=== PATIENT | female | born 1990 | race Caucasian/White ===

== ENCOUNTER 2016-04-15 13:30 | Emergency (ER) | payer OTHER ==
[2016-04-15] MEDS ORDERED: ONDANSETRON ODT 4 MG TABLET TL STA (14:45)
[2016-04-15] MEDS ORDERED: ONDANSETRON ODT 4 MG TABLET ONE (14:45)
[2016-04-15] MEDS ORDERED: BUTALB/ACETAM/CAFF 50/325/40MG TABLET PO ONE (15:00)
== END 2016-04-15 16:03 | disposition home or self-care (01) ==
DX: R51 Headache (principal)
CPT/HCPCS: 36415; 80053; 81003; 81025; 83690; 85025; 87275; 87276; 99283; A9270; Q0162

== ENCOUNTER 2016-07-28 04:03 | Emergency (ER) | payer OTHER ==
[2016-07-28] MEDS ORDERED: MORPHINE 2 MG/ML SYRINGE IVP STA ×2 (04:50→06:49)
[2016-07-28] MEDS ORDERED: MORPHINE 2 MG/ML SYRINGE ONE ×2 (04:50→06:48)
[2016-07-28] MEDS ORDERED: NITROFURANTOIN MACRO 100 MG CAPSULE PO STA (06:53)
[2016-07-28] MEDS ORDERED: NITROFURANTOIN MACRO 100 MG CAPSULE PO ONE (06:55)
== END 2016-07-28 07:09 | disposition home or self-care (01) ==
DX: O99.89 Other specified diseases and conditions complicating pregnancy, childbirth and the puerperium (principal); R10.2 Pelvic and perineal pain; Z3A.10 10 weeks gestation of pregnancy
CPT/HCPCS: 36415; 76705; 76801; 80053; 81001; 83690; 84702; 85025; 86900; 86901; 96374; 99283; 99284; A9270

== ENCOUNTER 2016-08-30 17:20 | Outpatient (CLI) | payer OTHER | END 2016-08-30 17:21 | disposition EMS.NT | LOC: EMS 17:20 | PROVIDERS: ATTEND Surgery | DX: R55 Syncope and collapse (principal) ==

== ENCOUNTER 2016-12-03 11:33 | Emergency (ER) | payer OTHER ==
[2016-12-03] MEDS ORDERED: ACETAMINOPHEN 1,000 MG/100 ML 100 ML IV STA (11:58)
[2016-12-03] MEDS ORDERED: SODIUM CHLORIDE 0.9% 1,000 ML IV ONE (11:58)
[2016-12-03] MEDS ORDERED: ACETAMINOPHEN 1,000 MG/100 ML 100 ML IV ONE (12:11)
[2016-12-03 12:23] LABS: BASOPHILS % (AUTO) 0.3 %; EOSINOPHILS # (AUTO) 0.1 10^3/uL (0.0-0.7); EOSINOPHILS % (AUTO) 0.4 %; HCT - HEMATOCRIT 33.2 % (37.0-47.0); HGB - HEMOGLOBIN 11.4 g/dL (12.0-16.0); LYMPHOCYTES # (AUTO) 1.1 10^3/uL (1.5-3.5); LYMPHOCYTES % (AUTO) 8.9 %; MEAN CORPUSCULAR HEMOGLOBIN 30.3 pg (27.0-31.0); MEAN CORPUSCULAR HGB CONC 34.2 g/dL (32.0-36.0); MEAN CORPUSCULAR VOLUME 88.5 fL (81.0-99.0); MEAN PLATELET VOLUME 9.8 fL (7.9-10.8); MONOCYTES % (AUTO) 7.5 %; NEUTROPHILS # (AUTO) 10.6 10^3/uL (1.5-6.6); NEUTROPHILS % (AUTO) 82.9 %; RED BLOOD COUNT 3.75 10^6/uL (4.20-5.40); RED CELL DISTRIBUTION WIDTH 12.9 % (12.0-15.0); UNCORRECTED WHITE BLOOD COUNT 12.8 x10^3/uL; WHITE BLOOD COUNT 12.8 x10^3/uL (4.8-10.8)
[2016-12-03 12:31] LABS: ALBUMIN/GLOBULIN RATIO 0.9 (1.0-2.2); BILIRUBIN,TOTAL 0.6 mg/dL (0.2-1.0); CALCIUM 8.7 mg/dL (8.5-10.3); CREATININE 0.6 mg/dL (0.4-1.0); POTASSIUM 3.3 mmol/L (3.5-5.0); TOTAL PROTEIN 6.7 g/dL (6.7-8.2)
--- NOTE | 2016-12-03 13:46 | Ultrasound Report ---
LIMITED OB ULTRASOUND: 12/03/2016 CLINICAL INDICATION: Fall, pain, contractions. TECHNIQUE: Real-time scanning was performed with sales representative trainee static images obtained. FINDINGS: There is a single viable intrauterine gestation, in cephalic presentation. heart rate is 166 BPM. The placenta is posterior to fundal, without evidence of previa or abruption. MADHAVI is normal. No free fluid is seen. IMPRESSION: SINGLE VIABLE INTRAUTERINE GESTATION. NO EVIDENCE OF PLACENTA PREVIA OR ABRUPTION. JOB #: [id number] EXT JOB #: [id number] [facility]
--- NOTE | 2016-12-03 14:05 | CT Preliminary Report ---
Exam: CT Head W/O IMPRESSION: Normal head CT. [facility] SITE ID: [id number]
--- NOTE | 2016-12-03 14:08 | CT Report ---
EXAM: CT HEAD EXAM DATE: 12/03/2016 01:30 PM. CLINICAL HISTORY: 28wk GA syncope HI amnesia HOOK. COMPARISON: None. TECHNIQUE: Multiaxial CT images were obtained from the foramen magnum to the vertex. IV contrast: Non e. Reformats: Coronal. In accordance with CT protocol optimization, one or more of the following dose reduction techniques w ere utilized for this exam: automated exposure control, adjustment of mA and/or KV based on patient s ize, or use of iterative reconstructive technique. FINDINGS: Parenchyma: No intraparenchymal hemorrhage. No evidence of mass, midline shift, or CT findings of inf arction. Bautista-white differentiation is distinct. Extraaxial Spaces: Normal for age. No subdural or epidural collections. Ventricles: Normal in size and position. Sinuses: Imaged paranasal sinuses, orbits, and mastoids show no significant abnormality. Bones: Unremarkable. Other: None. IMPRESSION: Normal head CT. [facility] Referring Provider Line: [phone] SITE ID: [id number]
--- NOTE | 2016-12-03 14:08 | CT Preliminary Report ---
Exam: CT Cervical Spine W/O IMPRESSION: Normal cervical spine CT. [facility] SITE ID: [id number]
--- NOTE | 2016-12-03 14:10 | CT Report ---
EXAM: CT CERVICAL SPINE WITHOUT CONTRAST DATE: 12/03/2016 02:01 PM HISTORY: Syncope fell HI neck pain neuro intact. COMPARISONS: None. TECHNIQUE: Thin-section axial images were acquired of the cervical spine without contrast. Post-proce ssing: Coronal and sagittal reformats. Other: None. In accordance with CT protocol optimization, one or more of the following dose reduction techniques w ere utilized for this exam: automated exposure control, adjustment of mA and/or KV based on patient s ize, or use of iterative reconstructive technique. FINDINGS: Alignment: Normal. No scoliosis or spondylolisthesis. Bones: No fracture or bone lesion. Interspace Levels/Facets: Disk spaces preserved. No degenerative changes. Musculature: Grossly unremarkable. Other: The paravertebral and prevertebral soft tissues are normal. The lung apices are clear. IMPRESSION: Normal cervical spine CT. [facility] Referring Provider Line: [phone] SITE ID: [id number]
[2016-12-03] MEDS ORDERED: LIDOCAINE PATCH 5% TOP STA (14:40)
[2016-12-03] MEDS ORDERED: oxyCODONE 5 MG TABLET PO STA (14:40)
--- NOTE | 2016-12-03 14:40 | ED Physician Documentation ---
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 and then went to the bathroom and awoke approx 40 min later on the floor after syncopal episode does not know how she landed but her head and neck and abd are TTP no incont or tongue biting to suggest seizure she states she had a migraine type HOOK two days ago but felt fine this AM at breakfast no memory of events after breakfast but at that time she was not having HOOK CP palp AP cramps etc only new med is flagyl for BV after awakening on the floor she had a severe HOOK, tender to palpate posterior, neck pain, and abd pain with cramps that feel like ctx, no bleeding or leaking had another episode of syncope earlier this preg - no cause identified Review of Systems Constitutional: denies: Fever, Chills Ears: denies: Drainage/discharge Nose: denies: Epistaxis Cardiac: denies: Chest pain / pressure Respiratory: denies: Dyspnea GI: reports: Abdominal Pain, Nausea. denies: Vomiting : reports: Now EGA. denies: Vaginal bleeding Musculoskeletal: reports: Neck pain Neurologic: reports: Headache, Head injury (presumked as her head is TTP). 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 cysts Other Past Medical History: optic neuritis - Past Surgical History Past Surgical History: Yes HEENT: Tonsil/Adenoidectomy - Present Medications Home Medications: Ambulatory Orders Medication Instructions Recorded Confirmed Pnv No.122/Iron/Folic Acid 1 each PO DAILY 07/28/16 12/03/16 [ Multi Tablet] Metronidazole 500 mg PO BID 12/03/16 12/03/16 - Allergies Allergies/Adverse Reactions: Allergies Allergy/AdvReac Type Severity Reaction Status Date / Time ampicillin Allergy Unknown Unknown Verified 12/03/16 11:59 lactose Allergy Unknown Verified 12/03/16 11:59 Penicillins Allergy Unknown Verified 12/03/16 11:59 - Social History Does the pt smoke?: No Smoking Status: Never smoker Does the pt drink ETOH?: Yes Does the pt have substance abuse?: No - Immunizations Immunizations are current?: Yes - POLST Patient has POLST: No PD ED PE NORMAL - Vitals Vital signs reviewed: Yes - General General: Alert and oriented X 3 - HEENT HEENT: PERRL, EOMI, Ears normal (no pederson sign, no hemotympanum). No: Atraumatic (TTP occiput) - Neck Neck: No: No bony TTP (+ bony TTP) - Cardiac Cardiac: RRR - Respiratory Respiratory: No respiratory distress - Abdomen Abdomen: Soft, Other (gravid, TTP over uterus but no palp ctx) - Derm Derm: Normal color - Extremities Extremities: No deformity - Neuro Neuro: Alert and oriented X 3, military technology manager 2-12 intact, No motor deficit, No sensory deficit, Normal speech - Psych Psych: Normal mood Results - Vitals Vitals: Vital Signs - 24 hr 12/03/16 12/03/16 12/03/16 11:35 14:22 15:23 Temperature 36.4 C L Heart Rate 84 76 74 Respiratory 18 18 20 Rate Blood Pressure 119/73 116/66 110/67 O2 Saturation 99 100 99 12/03/16 16:16 Temperature Heart Rate 78 Respiratory 18 Rate Blood Pressure 114/69 O2 Saturation Oxygen O2 Source Room air - EKG (time done) 1141 Rate: Rate (enter#) Rhythm: NSR [place]: Normal Intervals: Normal ID QRS: Normal Ischemia: Normal ST segments - Tele (time rhythm occurred) 1550 Telemetry / rhythm strip: NSR - Labs Labs: Laboratory Tests 12/03/16 12/03/16 12/03/16 11:45 11:45 11:54 WBC 12.8 H RBC 3.75 L Hgb 11.4 L Hct 33.2 L MCV 88.5 MCH 30.3 MCHC 34.2 RDW 12.9 Plt Count 226 MPV 9.8 Neut # 10.6 H Lymph # 1.1 L [place] # 1.0 Eos # 0.1 Baso # 0.0 Absolute Nucleated RBC 0.00 Nucleated RBCs 0.0 Sodium 136 Potassium 3.3 L Chloride 104 Carbon Dioxide 25 Anion Gap 7.0 BUN 9 Creatinine 0.6 Estimated GFR (MDRD) 121 Glucose 83 POC Whole Bld Glucose 74 Calcium 8.7 Total Bilirubin 0.6 AST 15 ALT 11 Alkaline Phosphatase 73 Total Protein 6.7 Albumin 3.1 L Globulin 3.6 Albumin/Globulin Ratio 0.9 L Lipase 18 L Urine Color Urine Clarity Urine pH Ur Specific [place] Urine Protein Urine Glucose (UA) Urine Ketones Urine Occult Blood Urine Nitrite Urine Bilirubin Urine Urobilinogen Ur Leukocyte Esterase Ur Microscopic Review Urine Culture Comments Blood Type 12/03/16 12/03/16 15:19 15:30 WBC RBC Hgb Hct MCV MCH MCHC RDW Plt Count MPV Neut # Lymph # [place] # Eos # Baso # Absolute Nucleated RBC Nucleated RBCs Sodium Potassium Chloride Carbon Dioxide Anion Gap BUN Creatinine Estimated GFR (MDRD) Glucose POC Whole Bld Glucose Calcium Total Bilirubin AST ALT Alkaline Phosphatase Total Protein Albumin Globulin Albumin/Globulin Ratio Lipase Urine Color YELLOW Urine Clarity CLEAR Urine pH 7.0 Ur Specific [place] <=1.005 Urine Protein NEGATIVE Urine Glucose (UA) NEGATIVE Urine Ketones NEGATIVE Urine Occult Blood NEGATIVE Urine Nitrite NEGATIVE Urine Bilirubin NEGATIVE Urine Urobilinogen 0.2 (NORMAL) Ur Leukocyte Esterase NEGATIVE Ur Microscopic Review NOT INDICATED Urine Culture Comments NOT INDICATED Blood Type O POSITIVE - Rads (name of study) OB sono Radiology: See rad report (IUP FHR 166 posterior placenta s prvia or abruption) CTH Radiology: See rad report (no acute) CT CS Radiology: See rad report (no acute) PD MEDICAL DECISION MAKING - ED course ED course: syncope unclear etiology pt states she another episode of syncope with no dx this NSR on EKG and tele nl labs no preceding sx that pt can recall she had a migraine last two days but not today - had no HOOK before this collapse severe HOOK after fall but with TTP posterior scalp and neck so more c/w injury, given prolonged LOC, amnesia, and severe HOOK / neck pain felt imaging was prudent d/w radiology Dr Lawton who advises CT more sensitive for injury than MRI and rec CT with shielding of fetus, d/w pt as well CT neg : no fx, no ICH, no SAH on CT, would not angio given discussed LP with pt as well and she declines and I think low likelihood of being useful O+ no rhogam needed d/w Dr Yanez and he will take pt to L&D for further monitoring and I would recommend ongoing tele as well since pt was in radiology off monitor much of her ER stay d/w Dr Yanez Departure - Departure Disposition: 01 Home, Self Care Clinical Impression: Syncope Qualifiers: Syncope type: unspecified Qualified Code(s): R55 - Syncope and collapse Head injury Qualifiers: Encounter type: initial encounter Qualified Code(s): S09.90XA - Unspecified injury of head, initial encounter Qualifiers: Weeks of gestation: 28 weeks Qualified Code(s): Z3A.28 - 28 weeks gestation of Condition: Fair Discharge Date/Time: 12/03/16 16:20
[2016-12-03] MEDS ORDERED: LIDOCAINE PATCH 5% TOP ONE ×2 (15:04→17:45)
[2016-12-03] MEDS ORDERED: oxyCODONE 5 MG TABLET ONE (15:05)
[2016-12-03 15:52] LABS: BILIRUBIN,URINE NEGATIVE (NEGATIVE)
[2016-12-03 15:56] LABS: UA CHARGE (STRIP ONLY) YES; UR CULTURE IF IND NOT INDICATED
[2016-12-03 16:17] VITALS: BP 114/69
[2016-12-03] MEDS ORDERED: ACETAMINOPHEN 325 MG TABLET PO ONE (17:45)
== END 2016-12-03 16:20 | disposition home or self-care (01) ==
LOC: ED 11:33
DX: O9A.213 Injury, poisoning and certain other consequences of external causes complicating pregnancy, third trimester (principal); S09.90XA Unspecified injury of head, initial encounter; O26.893 Other specified pregnancy related conditions, third trimester; R55 Syncope and collapse; Z3A.28 28 weeks gestation of pregnancy; X58.XXXA Exposure to other specified factors, initial encounter; Y92.012 Bathroom of single-family (private) house as the place of occurrence of the external cause
CPT/HCPCS: 36415; 70450; 72125; 76815; 80053; 81003; 82731; 83690; 85025; 86900; 86901; 93005; 96372; 96374; 99213; 99284; A9270; J0131; 81001; 87086

== ENCOUNTER 2016-12-03 16:18 | Outpatient (CLI) | payer OTHER ==
[2016-12-03 16:35] VITALS: BP 111/62
[2016-12-03] MEDS ORDERED: TERBUTALINE 1 MG/ML VIAL SUBQ ONE (18:39)
--- NOTE | 2016-12-03 19:59 | HISTORY & PHYSICAL EXAMINATION ---
DATE OF ADMISSION: 12/03/2016 DATE OF ADMISSION/SURGERY: 12/03/2016. IDENTIFICATION: A 26-year-old 1, para 0 female whose last menstrual period was May 18, 2016. She underwent insemination on May 31, 2016. She was given an EDC of February 20, 2017, utilizing a 7-week ultrasound. CHIEF COMPLAINT: Syncopal episode. HISTORY OF PRESENT ILLNESS: The patient states that this morning at roughly 10: 30 while preparing for work, she passed out. She states that she fell against the door frame and then slid down. She did not notice any hitting the abdomen. She was seen in the ED, at which time she had an EKG, a CT of the head, as well as ultrasound. There was evidence of the placenta being posterior without evidence of any abruption. She was sent here for labor and delivery for monitoring for the . She was noted to have contractions every 1-9 minutes. She notes pressure but denies any pain with these. She states that she had an episode of passing out at roughly 15 weeks secondary to dehydration. She also had a hydronephrosis at 22 weeks' gestation. She is noted to be O positive. She has been seen at [facility] by Dr. Leal. PAST MEDICAL HISTORY: Positive for optic neuritis in the right eye. SURGICAL HISTORY: Positive for tonsillectomy and adenoidectomy, as well as wisdom teeth. ALLERGIES: SHE RELATES 1. PENICILLIN, WELL 2. AMOXICILLIN ALLERGY, WITH WHICH SHE DEVELOPS NAUSEA WELL DIARRHEA. SHE DENIES ANY SWELLING OR SHORTNESS OF BREATH ASSOCIATED WITH THIS. CURRENT MEDICATIONS 1. vitamins, as well as 2. Metronidazole 250 mg b.i.d. HABITS: She denies use of alcohol, tobacco, street or addictive drugs. 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 FAMILY HISTORY: Positive for a grandmother who had acute lymphocytic leukemia. REVIEW OF SYSTEMS: Positive for some difficulty with her right eye. PHYSICAL EXAMINATION GENERAL: A well-developed, well-nourished, white female in no acute distress. VITAL SIGNS: Blood pressure 111/62, respirations 18, and 98%. Temperature is 96.8. HEART: Regular rate and rhythm. Noted to be normal sinus rhythm, both in the ED as well as telemonitoring here in Labor and Delivery. HEART: Regular rate and rhythm without murmurs. LUNGS: Moser are clear without rales or wheezes. ABDOMEN: Gravid, 28 cm. PELVIC: Speculum was placed dry with a FFN being obtained. Cervix was noted to be 3.5 cm long and was felt that the head floated easily out of the pelvis. The cervix was closed. There was no CVA tenderness noted. EXTREMITIES: DTRs are 2+ in the patella and no clonus is noted. IMPRESSION: A 26-year-old G1, P0, at 28.5 weeks with a full syncopal episode with negative workup so far. Contractions noted in Labor and Delivery. PLAN: The patient received subcuticular terbutaline x1. FFN is pending at this time. We will plan to send the patient home. She was instructed to monitor for labor. She is also instructed that she may follow up at [facility] for her continued care. JOB #: [id number] EXT JOB #:[id number] [facility]
== END 2016-12-03 19:55 | disposition home or self-care (01) ==
LOC: WFO 16:18 → FBP 16:19 → WFO 19:55
PROVIDERS: ATTEND Obstetrics & Gynecology
DX: O26.893 Other specified pregnancy related conditions, third trimester (principal); R55 Syncope and collapse; O60.03 Preterm labor without delivery, third trimester; Z3A.28 28 weeks gestation of pregnancy
CPT/HCPCS: 82731; 99213

== ENCOUNTER 2016-12-27 20:21 | Outpatient (CLI) | payer OTHER ==
[2016-12-27 21:24] LABS: BILIRUBIN,URINE NEGATIVE (NEGATIVE)
[2016-12-27 21:27] LABS: UA CHARGE (STRIP ONLY) YES; UR CULTURE IF IND NOT INDICATED
[2016-12-27 21:28] VITALS: BP 126/80
--- NOTE | 2016-12-27 22:46 | PREOP HISTORY & PHYSICAL ---
DATE OF ADMISSION/SURGERY: 12/27/2016. IDENTIFICATION: A 26-year-old G1, P0, female who is 32.1 weeks with an EDC of . She had an IUI for this . CHIEF COMPLAINT: Loss of fluid. HISTORY OF PRESENT ILLNESS: The patient states that roughly 191 following getting up from going to the bathroom, she noted a lot of fluid leaking from her perineal area. She denies any Valsalva or any other increased pelvic pressure. She is concerned about the possibility of SROM. She does have a history of having contractions back 1 month ago, was seen here, and was seen roughly 1 week ago at [facility]. She has been treated with terbutaline with good success. At her [facility] visit, her exam was done by the nurse and did not show evidence of any ruptured membranes or shortening of the cervix. PAST MEDICAL HISTORY: Positive for optic neuritis. She also has a history of pyelonephritis during this , as well as asthma which is currently inactive. She has also had renolithiasis. SURGICAL HISTORY: Tonsils and adenoidectomy, as well as wisdom teeth. ALLERGIES 1. PENICILLIN. 2. AMOXICILLIN. CURRENT MEDICATIONS 1. vitamins. 2. Terbutaline. HABITS: She denies the use of alcohol, tobacco, street or addictive drugs. SOCIAL HISTORY: She is . Her spouse is in active duty, [employer]. FAMILY HISTORY: Positive for a grandmother with lymphoma. REVIEW OF SYSTEMS: Negative with the exception of some diarrhea roughly 1 week ago. PHYSICAL EXAMINATION VITAL SIGNS: 99.6. Blood pressure 126/80. Pulse is 102. She is 96% on room air. HEENT: Pupils are equal, round. Extraocular muscles intact. Reactive to light. HEART: Regular rate and rhythm without murmurs. LUNGS: Moser are clear. ABDOMEN: Soft, nontender, gravid. Cervix examination: Sterile speculum exam shows a cervix, which was closed. There was negative pool, negative fern, negative nitrazine. Her internal examination showed a closed cervix, which was long and high. Cultures for group B strep were obtained at that time. Urinalysis specific gravity of 1.005. Negative for leukocytes or nitrites. FFN Negative. IMPRESSION: A 26-year-old G1, P0, 32.1 weeks with no evidence of spontaneous rupture of membranes. She has had a single contraction but reactive NST. PLAN: We will start the patient on Macrobid because of the history of a pyelonephritis during the . We will have the patient follow up in the clinic. JOB #: [id number] EXT JOB #:[id number] [facility]
== END 2016-12-27 22:10 | disposition home or self-care (01) ==
LOC: WFO 20:21 → FBP 20:22 → WFO 22:10
PROVIDERS: ATTEND Obstetrics & Gynecology
DX: Z34.03 Encounter for supervision of normal first pregnancy, third trimester (principal)
CPT/HCPCS: 81001; 81003; 82731; 87081; 87086; 99214

== ENCOUNTER 2017-04-27 19:43 | Emergency (ER) | payer OTHER ==
[2017-04-27] MEDS ORDERED: methylPREDNISolone SUCCINATE 125 MG/2 ML VIAL IVP STA (20:08)
[2017-04-27] MEDS ORDERED: diphenhydrAMINE INJ 50 MG/ML VIAL IVP STA (20:09)
[2017-04-27] MEDS ORDERED: METOCLOPRAMIDE 10 MG/2 ML VIAL IVP STA (20:09)
--- NOTE | 2017-04-27 20:12 | ED Physician Documentation ---
History of Present Illness - Stated complaint Stated Complaint: OPTIC NEURITIS - Chief complaint Chief Complaint: General - History obtained from History obtained from: Patient - History of Present Illness Timing: Other (This is a 27-year-old woman with history of optic neuritis twice , once in 2012 and once in 2014. Both time she was treated with high-dose steroids and per her history she had no evidence of MS on MRI at the time. She has had about a week's worth of right-sided headache which is consistent with prior episodes of migraine but over the last 5 days or so has had in the right eye only a crescent of black vision in the peripheral vision consistent with prior episodes of optic neuritis. There are no other neurologic symptoms although she is having some back pain up and down the spine that is worse if she reaches across with the right arm. No full vision loss otherwise in the left eye is fine. 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 : None HEENT: Other Psych: None Musculoskeletal: None Derm: None Other Past Medical History: Optic nervitis - Past Surgical History Past Surgical History: Yes HEENT: Tonsil/Adenoidectomy - Present Medications Home Medications: Ambulatory Orders Medication Instructions Recorded Confirmed Pnv No.122/Iron/Folic Acid 1 each PO DAILY 07/28/16 12/03/16 [ Multi Tablet] Metronidazole 500 mg PO BID 12/03/16 12/03/16 - Allergies Allergies/Adverse Reactions: Allergies Allergy/AdvReac Type Severity Reaction Status Date / Time ampicillin Allergy Unknown Unknown Verified 04/27/17 19:52 lactose Allergy Unknown Verified 04/27/17 19:52 Penicillins Allergy Unknown Verified 04/27/17 19:52 - Social History Does the pt smoke?: No Smoking Status: Never smoker Does the pt drink ETOH?: No Does the pt have substance abuse?: No - Immunizations Immunizations are current?: Yes - POLST Patient has POLST: No PD ED PE NORMAL - Vitals Vital signs reviewed: Yes - General General: Alert and oriented X 3, No acute distress - HEENT HEENT: PERRL, EOMI, Ears normal - Neck Neck: Supple, no meningeal sign, No bony TTP - Cardiac Cardiac: RRR, No murmur - Respiratory Respiratory: No respiratory distress, Clear bilaterally - Abdomen Abdomen: Soft, Non tender - Neuro Neuro: Alert and oriented X 3, porcelain buildup assistant 2-12 intact, No motor deficit, No sensory deficit, Normal speech Eye Opening: Spontaneous Motor: Obeys Commands Verbal: Oriented GCS Score: 15 - Psych Psych: Normal mood, Normal affect Results - Vitals Vitals: Vital Signs - 24 hr 04/27/17 19:47 Temperature 36.2 C L Heart Rate 74 Respiratory 16 Rate Blood Pressure 133/74 H O2 Saturation 99 Oxygen O2 Source Room air - Labs Labs: Laboratory Tests 04/27/17 04/27/17 20:50 20:50 WBC 7.9 RBC 4.46 Hgb 10.5 L Hct 33.4 L MCV 75.0 L MCH 23.5 L MCHC 31.3 L RDW 17.9 H Plt Count 227 MPV 9.1 Neut # 5.7 Lymph # 1.5 [place] # 0.6 Eos # 0.1 Baso # 0.1 Absolute Nucleated RBC 0.00 Nucleated RBC % 0.0 Sodium 136 Potassium 3.6 Chloride 101 Carbon Dioxide 26 Anion Gap 9.0 BUN 15 Creatinine 0.9 Estimated GFR (MDRD) 75 L Glucose 92 Calcium 8.9 Total Bilirubin 0.7 AST 18 ALT 16 Alkaline Phosphatase 68 Total Protein 7.1 Albumin 4.1 Globulin 3.0 Albumin/Globulin Ratio 1.4 Lipase 22 PD MEDICAL DECISION MAKING - ED course ED course: 27-year-old woman with likely recurrent optic neuritis. Plan at this point is to give her 1 g of Solu-Medrol now and to return in the morning for repeat dosing and MRI. She has an appointment with a neurologist, but not until May 20. Case was discussed by phone with Dr. Samantha Lindsay, a neurologist at [facility] who agreed with the plan, needs an MRI with and without contrast with fine cuts through the orbits and optic nerves, but otherwise does not need to be transferred down for specialty care. She should have 1 g of Solu-Medrol for 3 days, does not require a taper after that. Departure - Departure Disposition: Home, Self Care Clinical Impression: Optic neuritis Condition: Good Record reviewed to determine appropriate education?: Yes Comments: As discussed, return tomorrow for a second gram of Solu-Medrol, 1 g and an MRI of the brain with and without contrast with thin cuts through the orbits. You will also have to return the next day for a third dose. Follow-up with the neurologist next month as scheduled.
[2017-04-27 21:02] LABS: BASOPHILS # (AUTO) 0.1 10^3/uL (0.0-0.1); BASOPHILS % (AUTO) 0.7 %; EOSINOPHILS # (AUTO) 0.1 10^3/uL (0.0-0.7); HGB - HEMOGLOBIN 10.5 g/dL (12.0-16.0); LYMPHOCYTES # (AUTO) 1.5 10^3/uL (1.5-3.5); LYMPHOCYTES % (AUTO) 18.9 %; MEAN CORPUSCULAR HEMOGLOBIN 23.5 pg (27.0-31.0); MEAN CORPUSCULAR HGB CONC 31.3 g/dL (32.0-36.0); MEAN PLATELET VOLUME 9.1 fL (7.9-10.8); MONOCYTES # (AUTO) 0.6 10^3/uL (0.0-1.0); MONOCYTES % (AUTO) 7.8 %; NEUTROPHILS # (AUTO) 5.7 10^3/uL (1.5-6.6); NEUTROPHILS % (AUTO) 71.6 %; PLT - PLATELET COUNT 227 10^3/uL (130-450); RED BLOOD COUNT 4.46 10^6/uL (4.20-5.40); RED CELL DISTRIBUTION WIDTH 17.9 % (12.0-15.0); WHITE BLOOD COUNT 7.9 x10^3/uL (4.8-10.8)
[2017-04-27 21:15] LABS: ALBUMIN 4.1 g/dL (3.2-5.5); ALBUMIN/GLOBULIN RATIO 1.4 (1.0-2.2); BILIRUBIN,TOTAL 0.7 mg/dL (0.2-1.0); CALCIUM 8.9 mg/dL (8.5-10.3); CREATININE 0.9 mg/dL (0.4-1.0); TOTAL PROTEIN 7.1 g/dL (6.7-8.2)
[2017-04-27] MEDS ORDERED: HYDROcod/ACET 5/325 Prepack 6 PO STA (21:56)
[2017-04-27 22:32] VITALS: BP 137/88
== END 2017-04-27 22:30 | disposition home or self-care (01) ==
LOC: ED 19:43
DX: H46.9 Unspecified optic neuritis (principal)
CPT/HCPCS: 36415; 80053; 83690; 85025; 96374; 96375; 99283; 99284

== ENCOUNTER 2017-04-28 10:35 | Emergency (ER) | payer OTHER ==
[2017-04-28] MEDS ORDERED: methylPREDNISolone SUCCINATE 125 MG/2 ML VIAL IVP STA (10:51)
[2017-04-28] MEDS ORDERED: methylPREDNISolone SUCCINATE 1,000 MG in SODIUM CHLORIDE 0.9% 250 ML IV STA (11:04)
[2017-04-28] MEDS ORDERED: GADOBUTROL 7.5 MMOL/7.5 ML VIAL ONE (11:24)
[2017-04-28] MEDS ORDERED: GADOBUTROL 7.5 MMOL/7.5 ML VIAL IVP ONE (11:46)
--- NOTE | 2017-04-28 13:00 | ED Physician Documentation ---
History of Present Illness - Stated complaint Stated Complaint: INFUSION - Chief complaint Chief Complaint: General - History obtained from History obtained from: Patient - History of Present Illness Timing: Other (See my note from last night, briefly this young woman has recurrent optic neuritis and had several days of right eye peripheral visual deficit consistent with prior episodes of optic neuritis. She received 1 g of Solu-Medrol last night and returns as instructed for repeat dosing and an MRI. 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 : None HEENT: Other Psych: None Musculoskeletal: None Derm: None - Past Surgical History Past Surgical History: Yes HEENT: Tonsil/Adenoidectomy - Present Medications Home Medications: Ambulatory Orders Medication Instructions Recorded Confirmed Pnv No.122/Iron/Folic Acid 1 each PO DAILY 07/28/16 12/03/16 [ Multi Tablet] Metronidazole 500 mg PO BID 12/03/16 12/03/16 - Allergies Allergies/Adverse Reactions: Allergies Allergy/AdvReac Type Severity Reaction Status Date / Time ampicillin Allergy Unknown Unknown Verified 04/27/17 19:52 lactose Allergy Unknown Verified 04/27/17 19:52 Penicillins Allergy Unknown Verified 04/27/17 19:52 - Social History Does the pt smoke?: No Smoking Status: Never smoker Does the pt drink ETOH?: No Does the pt have substance abuse?: No - Immunizations Immunizations are current?: Yes - POLST Patient has POLST: No PD ED PE NORMAL - Vitals Vital signs reviewed: Yes - General General: Alert and oriented X 3, No acute distress - HEENT HEENT: PERRL, EOMI - Neck Neck: Supple, no meningeal sign, No bony TTP - Derm Derm: Normal color, Warm and dry - Neuro Neuro: Alert and oriented X 3, Normal speech - Psych Psych: Normal mood, Normal affect Results - Vitals Vitals: Vital Signs - 24 hr 04/28/17 10:44 Temperature 36.2 C L Heart Rate 74 Respiratory 18 Rate Blood Pressure 130/74 O2 Saturation 99 Oxygen O2 Source Room air - Rads (name of study) MRI Brain w/wo Radiology: Prelim report reviewed, See rad report Departure - Departure Disposition: 01 Home, Self Care Clinical Impression: Optic neuritis Condition: Good Record reviewed to determine appropriate education?: Yes Comments: Return tomorrow for the final dose of Solu-Medrol, 1 g IV. Sooner if worse. Continue the plan to follow-up with the neurologist next month as scheduled.
--- NOTE | 2017-04-28 13:13 | MRI Report ---
EXAM: MRI BRAIN AND ORBITS WITHOUT AND WITH CONTRAST EXAM DATE: 04/28/2017 12:24 PM. CLINICAL HISTORY: 27-year-old with history of right optic neuritis COMPARISON: CT head 12/03/2016. TECHNIQUE: Multiplanar, multisequence T1-weighted and fluid-sensitive MR sequences of the brain and o rbits were performed. Sequences optimized for orbital evaluation. Other: None. IV Contrast: 6.5 cc GA DAVIST. FINDINGS: Brain Volume: Normal for age. Parenchyma: No acute hemorrhage, mass, or infarct. No white matter lesions identified. No abnormal en hancement. Ventricles/Cisterns: No hydrocephalus. No abnormal extra-axial fluid collection or hemorrhage. Orbits: The globes appear symmetric in size and positioning. There is questionable T2 signal hyperint ensity seen within the proximal right intraorbital optic nerve (series 901, image 14) without enhance ment. The optic nerves are otherwise normal. Prechiasmatic optic nerves, optic chiasm, and post chias matic optic nerves appear normal. No orbital mass, pulmonary process, fluid collection, or abnormal postcontrast enhancement seen. Extra ocular muscles appear symmetric and enhance uniformly. Sella Turcica: The pituitary gland, cavernous sinuses, suprasellar cistern and optic chiasm are unrem arkable. IAC: Symmetric and unremarkable. Vasculature: Normal signal flow void is seen in the major arterial structures at the skull base. The dural sinuses are patent and enhance normally. Sinuses: No acute sinus disease. Bones: No focal pathologic appearing marrow signal changes. Other: None. IMPRESSION: 1. Questionable increased T2 signal hyperintensity within the proximal right intraorbital optic nerve without enhancement. Finding may represent prior optic neuritis. 2. Otherwise the orbits appear normal with no mass, active inflammatory process, fluid collection, or abnormal postcontrast enhancement. 3. No acute infarct, intracranial hemorrhage, mass, hydrocephalus, midline shift, abnormal postcontra st enhancement. 4. No definite white matter lesions seen. [facility] Referring Provider Line: [phone] SITE ID: [id number]
[2017-04-28 13:47] VITALS: BP 126/70
== END 2017-04-28 13:45 | disposition home or self-care (01) ==
LOC: ED 10:35
DX: H46.8 Other optic neuritis (principal)
CPT/HCPCS: 70553; 96365; 99283; A9585

== ENCOUNTER 2017-04-29 17:44 | Emergency (ER) | payer OTHER ==
[2017-04-29] MEDS ORDERED: methylPREDNISolone SUCCINATE 125 MG/2 ML VIAL IVP STA (18:31)
[2017-04-29] MEDS ORDERED: methylPREDNISolone SUCCINATE 1,000 MG in SODIUM CHLORIDE 0.9% 250 ML IV STA (18:36)
[2017-04-29 20:32] VITALS: BP 121/80
--- NOTE | 2017-04-29 20:41 | ED Physician Documentation ---
History of Present Illness - Stated complaint Stated Complaint: INFUSION - Chief complaint Chief Complaint: Heent - History obtained from History obtained from: Patient (pt with recent diagnosis of optic neuritis. she reports that she ahs been getting daily infusions of steroids here in the ER. She reports imprvement in her symptoms. 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 HEENT: Other Psych: None Musculoskeletal: None Derm: None - Past Surgical History Past Surgical History: Yes HEENT: Tonsil/Adenoidectomy - Present Medications Home Medications: Ambulatory Orders Medication Instructions Recorded Confirmed Pnv No.122/Iron/Folic Acid 1 each PO DAILY 07/28/16 12/03/16 [ Multi Tablet] - Allergies Allergies/Adverse Reactions: Allergies Allergy/AdvReac Type Severity Reaction Status Date / Time ampicillin Allergy Unknown Unknown Verified 04/29/17 18:00 lactose Allergy Unknown Verified 04/29/17 18:00 Penicillins Allergy Unknown Verified 04/29/17 18:00 - Social History Does the pt smoke?: No Smoking Status: Never smoker Does the pt drink ETOH?: No Does the pt have substance abuse?: No - Immunizations Immunizations are current?: Yes - POLST Patient has POLST: No PD ED PE NORMAL - Vitals Vital signs reviewed: Yes - General General: No acute distress - HEENT HEENT: Moist mucous membranes - Respiratory Respiratory: No respiratory distress - Back Back: Other (some right sided paraspinal muscle tenderness) - Derm Derm: Normal color, No rash - Neuro Neuro: Alert and oriented X 3 Eye Opening: Spontaneous Motor: Obeys Commands Verbal: Oriented GCS Score: 15 - Psych Psych: Normal mood, Normal affect Results - Vitals Vitals: Vital Signs - 24 hr 04/29/17 04/29/17 17:57 20:31 Temperature 36.2 C L 36.5 C Heart Rate 85 64 Respiratory 16 14 Rate Blood Pressure 124/68 121/80 O2 Saturation 98 99 Oxygen O2 Source Room air PD MEDICAL DECISION MAKING - ED course Complexity details: considered differential, d/w patient ED course: pt received her third dose of steroids today. the plan is for her to follow up with neurology in may. she reports improvement in her symptoms. no vision loss. Departure - Departure Disposition: 01 Home, Self Care Clinical Impression: Optic neuritis Condition: Good Follow-Up: ARINA GATES [Primary Care Provider] - Comments: Call your primary care provider for a follow up. Return to the ER for any new or worsening symptoms. Forms: Activity restrictions Discharge Date/Time: 04/29/17 20:50
== END 2017-04-29 20:50 | disposition home or self-care (01) ==
LOC: ED 17:44
DX: H46.9 Unspecified optic neuritis (principal)
CPT/HCPCS: 96365; 99283

== ENCOUNTER 2017-09-11 23:15 | Emergency (ER) | payer OTHER ==
[2017-09-11] MEDS ORDERED: MORPHINE 10 MG/ML VIAL IVP STA (23:27)
[2017-09-11 23:30] LABS: BASOPHILS # (AUTO) 0.1 10^3/uL (0.0-0.1); BASOPHILS % (AUTO) 0.8 %; EOSINOPHILS # (AUTO) 0.1 10^3/uL (0.0-0.7); EOSINOPHILS % (AUTO) 1.9 %; HGB - HEMOGLOBIN 12.1 g/dL (12.0-16.0); LYMPHOCYTES % (AUTO) 29.7 %; MEAN CORPUSCULAR HEMOGLOBIN 24.8 pg (27.0-31.0); MEAN CORPUSCULAR HGB CONC 32.3 g/dL (32.0-36.0); MEAN CORPUSCULAR VOLUME 76.9 fL (81.0-99.0); MEAN PLATELET VOLUME 9.4 fL (7.9-10.8); MONOCYTES # (AUTO) 0.6 10^3/uL (0.0-1.0); MONOCYTES % (AUTO) 8.8 %; NEUTROPHILS # (AUTO) 3.9 10^3/uL (1.5-6.6); NEUTROPHILS % (AUTO) 58.8 %; PLT - PLATELET COUNT 197 10^3/uL (130-450); RED BLOOD COUNT 4.88 10^6/uL (4.20-5.40); RED CELL DISTRIBUTION WIDTH 18.1 % (12.0-15.0); WHITE BLOOD COUNT 6.7 x10^3/uL (4.8-10.8)
--- NOTE | 2017-09-11 23:30 | ED Physician Documentation ---
PD HPI HEADACHE - Stated complaint Stated Complaint: MIGRAINE/VISION LOSS - Chief complaint Chief Complaint: Heent - History obtained from History obtained from: Patient, Family - History of Present Illness Timing - onset: Today Timing - onset during: Rest Timing - duration: Hours (2) Timing - details: Abrupt onset Pain level max: 9 Pain level now: 9 Location: Right Quality: Throbbing, Aching Associated symptoms: Nausea, Vomiting, Vision changes (loss of vision in the right eye). No: Fever, Stiff neck, Weakness, Numbness Improved by: Dark room Worsened by: Light Similar symptoms before: Diagnosis (optic neuritis) Recently seen: Not recently seen - Additional information Additional information: Patient is a 27-year-old female who presents to the emergency department with a headache and loss of vision in the right eye. States similar to her prior episodes of optic neuritis. Original episode was in 2011. Her last recurrence was in April of this year. Responded well to 3 days of IV Solu-Medrol at 1000 mg daily. Was seeing a neurologist in [place], but retired. Has been on topomax for past 6 months. Is not currently or . Review of Systems Ten Systems: 10 systems reviewed and negative Constitutional: denies: Fever, Chills Nose: denies: Rhinorrhea / runny nose, Congestion Throat: denies: Sore throat Cardiac: denies: Chest pain / pressure Respiratory: denies: Cough GI: reports: Nausea, Vomiting. 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 : None HEENT: Other Psych: None Musculoskeletal: None Derm: None - Past Surgical History Past Surgical History: Yes HEENT: Tonsil/Adenoidectomy - Present Medications Home Medications: Ambulatory Orders Medication Instructions Recorded Confirmed Pnv No.122/Iron/Folic Acid 1 each PO DAILY 07/28/16 12/03/16 [ Multi Tablet] Ondansetron Odt [Zofran] 4 mg TL Q6H PRN #20 tablet 09/12/17 Oxycodone HCl/Acetaminophen 1 - 2 each PO Q6H PRN #10 tablet 09/12/17 [Percocet 5-325 mg Tablet] - Allergies Allergies/Adverse Reactions: Allergies Allergy/AdvReac Type Severity Reaction Status Date / Time ampicillin Allergy Unknown Unknown Verified 09/11/17 23:19 lactose Allergy Unknown Verified 09/11/17 23:19 Penicillins Allergy Unknown Verified 09/11/17 23:19 - Social History Does the pt smoke?: No Smoking Status: Never smoker Does the pt drink ETOH?: No Does the pt have substance abuse?: No - Immunizations Immunizations are current?: Yes - POLST Patient has POLST: No PD ED PE NORMAL - Vitals Vital signs reviewed: Yes - General General: Alert and oriented X 3, No acute distress - HEENT HEENT: Moist mucous membranes, Pharynx benign - Neck Neck: Supple, no meningeal sign - Cardiac Cardiac: RRR - Respiratory Respiratory: No respiratory distress, Clear bilaterally - Abdomen Abdomen: Soft, Non tender, Non distended - Back Back: No spinal TTP - Derm Derm: Warm and dry - Neuro Neuro: Alert and oriented X 3, No motor deficit, No sensory deficit, Other ( vision only to shadows from the R eye. + photophobia B. PERRL) - Psych Psych: Normal mood, Normal affect Results - Vitals Vitals: Vital Signs - 24 hr 09/11/17 23:17 Temperature 36.8 C Heart Rate 86 Respiratory 16 Rate Blood Pressure 127/86 H O2 Saturation 96 Oxygen O2 Source Room air - Labs Labs: Laboratory Tests 09/11/17 09/11/17 09/11/17 23:23 23:23 23:23 WBC 6.7 RBC 4.88 Hgb 12.1 Hct 37.5 MCV 76.9 L MCH 24.8 L MCHC 32.3 RDW 18.1 H Plt Count 197 MPV 9.4 Neut # (Auto) 3.9 Lymph # (Auto) 2.0 Charlton # (Auto) 0.6 Eos # (Auto) 0.1 Baso # (Auto) 0.1 Absolute Nucleated RBC 0.00 Nucleated RBC % 0.0 ESR 4 Sodium 138 Potassium 3.3 L Chloride 107 Carbon Dioxide 21 Anion Gap 10.0 BUN 14 Creatinine 0.8 Estimated GFR (MDRD) 86 L Glucose 84 Calcium 9.0 C-Reactive Protein < 1.0 PD MEDICAL DECISION MAKING - ED course Complexity details: reviewed results, re-evaluated patient, considered differential, d/w patient, d/w hearing consultant ED course: Patient is a 27-year-old female with what appears to be a recurrence of her optic neuritis. Discussed the case with [facility] neurology on-call, Dr. Oropeza, he recommends a repeat MRI tomorrow if available as well as Solu-Medrol 1 g IV daily for 3 days. As she does not currently have a neurologist, he did give me the name of an outpatient neuro-marketing services vice president in [place], Dr. Brunilda Treviño. Will have her follow-up with Dr. Treviño as an outpatient. Headache improved in the emergency department. Patient counseled regarding signs and symptoms for which I believe and urgent re-evaluation would be necessary. Patient with good understanding of and agreement to plan and is comfortable going home at this time This document was made in part using voice recognition software. While efforts are made to proofread this document, sound alike and grammatical errors may occur. - Sepsis Event Vital Signs: Vital Signs - 24 hr 09/11/17 23:17 Temperature 36.8 C Heart Rate 86 Respiratory 16 Rate Blood Pressure 127/86 H O2 Saturation 96 Oxygen O2 Source Room air Departure - Departure Disposition: 01 Home, Self Care Clinical Impression: Optic neuritis Headache Qualifiers: Headache type: unspecified Headache chronicity pattern: acute headache Intractability: not intractable Qualified Code(s): R51 - Headache Condition: Good Instructions: ED Cephalgia Unspecified Follow-Up: ARINA GATES [Primary Care Provider] - Prescriptions: Ondansetron Odt [Zofran] 4 mg TL Q6H PRN #20 tablet PRN Reason: Nausea / Vomiting Oxycodone HCl/Acetaminophen [Percocet 5-325 mg Tablet] 1 - 2 each PO Q6H PRN # 10 tablet PRN Reason: pain Comments: Return tomorrow for your next dose of solumedrol. We will do a total of [address] Brunilda Treviño is a neuro-marketing services vice president at the [facility] who can follow up as an outpatient with you. Return if you worsen.
[2017-09-11] MEDS ORDERED: ONDANSETRON 4 MG/2 ML VIAL IVP STA (23:40)
[2017-09-11] MEDS: methylPREDNISolone SUCCINATE 1,000 MG in SODIUM CHLORIDE 0.9% 250 ML IV STA (23:42)
[2017-09-11] MEDS ORDERED: WATER FOR INJECTION,STERILE 20 ML ONE (23:43)
[2017-09-11 23:46] LABS: BUN - BLOOD UREA NITROGEN 14 mg/dL (6-20); CARBON DIOXIDE - CO2 21 mmol/L (21-32); CHLORIDE 107 mmol/L (101-111); CREATININE 0.8 mg/dL (0.4-1.0); GFR - MDRD 86 (>89); GLUCOSE 84 mg/dL (70-100); SODIUM 138 mmol/L (135-145)
[2017-09-11] MEDS ORDERED: ONDANSETRON 4 MG/2 ML VIAL ONE (23:47)
[2017-09-11 23:49] LABS: CRP - C-REACTIVE PROTEIN < 1.0 mg/dL (0-1.0)
[2017-09-11] MEDS ORDERED: KETOROLAC 60 MG/2 ML VIAL IVP STA (23:58)
[2017-09-11] MEDS ORDERED: LORazepam 2 MG/ML VIAL IVP STA (23:59)
[2017-09-12] MEDS: methylPREDNISolone SUCCINATE 1,000 MG in SODIUM CHLORIDE 0.9% 250 ML IV STA (00:20)
[2017-09-12] MEDS ORDERED: oxyCODONE/ACET 5/325 Prepack 4 PO STA (00:44)
[2017-09-12] MEDS ORDERED: KETAMINE 500 MG/10 ML VIAL IVP STA (00:56)
[2017-09-12] MEDS ORDERED: ONDANSETRON 4 MG/2 ML VIAL IVP STA (01:42)
[2017-09-12] MEDS ORDERED: diphenhydrAMINE INJ 50 MG/ML VIAL IVP STA (01:49)
[2017-09-12] MEDS ORDERED: METOCLOPRAMIDE 10 MG/2 ML VIAL IVP STA (02:27)
[2017-09-12] MEDS ORDERED: SODIUM CHLORIDE 0.9% 1,000 ML IV ONE (02:27)
[2017-09-12] MEDS ORDERED: HYDROmorphone 2 MG/ML VIAL IVP STA (02:28)
[2017-09-12 03:05] VITALS: BP 118/67
== END 2017-09-12 03:05 | disposition home or self-care (01) ==
LOC: ED 23:15
DX: H46.9 Unspecified optic neuritis (principal); R51 Headache
CPT/HCPCS: 36415; 70543; 70553; 80048; 85025; 85651; 86140; 96374; 96375; 96376; 99283; 99284; A9585; J1170; J1200; J2060; J2765

== ENCOUNTER 2017-09-12 14:28 | Emergency (ER) | payer OTHER ==
[2017-09-12] MEDS ORDERED: HALOPERIDOL 5 MG/ML VIAL IVP STA (14:59)
[2017-09-12] MEDS ORDERED: methylPREDNISolone SUCCINATE 1,000 MG in SODIUM CHLORIDE 0.9% 250 ML IV STA (15:00)
[2017-09-12] MEDS ORDERED: diphenhydrAMINE INJ 50 MG/ML VIAL IVP STA (15:00)
--- NOTE | 2017-09-12 15:07 | ED Physician Documentation ---
PD HPI HEADACHE - Stated complaint Stated Complaint: MIGRAIN/STEROIDS - Chief complaint Chief Complaint: Neuro - History obtained from History obtained from: Patient, Family - History of Present Illness Timing - onset: How many days ago (2) Timing - onset during: Rest Timing - duration: Days (2) Timing - details: Gradual onset Pain level max: 9 Pain level now: 8 Location: Right Quality: Throbbing, Aching Associated symptoms: Other (vision improved from last night.). No: Fever, Stiff neck, Nausea, Vomiting Improved by: Dark room Worsened by: Light, Noise Similar symptoms before: Diagnosis (optic neuritis) Review of Systems Ten Systems: 10 systems reviewed and negative Constitutional: denies: Fever, Chills Eyes: reports: Photophobia Nose: denies: Rhinorrhea / runny nose, Congestion Throat: denies: Sore throat Cardiac: denies: Chest pain / pressure Respiratory: denies: Cough GI: denies: Nausea, Vomiting, Diarrhea Skin: denies: Rash Musculoskeletal: denies: Neck pain, Back pain Neurologic: denies: Focal weakness, Numbness, Seizure, Confused PD PAST MEDICAL HISTORY - Past Medical History Past Medical History: Yes Cardiovascular: None Respiratory: None Neuro: None Endocrine/Autoimmune: None GI: None 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 HEENT: Other Psych: None Musculoskeletal: None Derm: None - Past Surgical History Past Surgical History: Yes HEENT: Tonsil/Adenoidectomy - Present Medications Home Medications: Ambulatory Orders Medication Instructions Recorded Confirmed Ondansetron Odt [Zofran] 4 mg TL Q6H PRN #20 tablet 09/12/17 Oxycodone HCl/Acetaminophen 1 - 2 each PO Q6H PRN #10 tablet 09/12/17 [Percocet 5-325 mg Tablet] - Allergies Allergies/Adverse Reactions: Allergies Allergy/AdvReac Type Severity Reaction Status Date / Time ampicillin Allergy Unknown Unknown Verified 09/11/17 23:19 lactose Allergy Unknown Verified 09/11/17 23:19 Penicillins Allergy Unknown Verified 09/11/17 23:19 - Social History Does the pt smoke?: No Smoking Status: Never smoker Does the pt drink ETOH?: No Does the pt have substance abuse?: No - Immunizations Immunizations are current?: Yes - POLST Patient has POLST: No PD ED PE NORMAL - Vitals Vital signs reviewed: Yes - General General: Alert and oriented X 3, Well developed/nourished - HEENT HEENT: PERRL, EOMI, Moist mucous membranes, Pharynx benign, Other (+ photophobia ) - Neck Neck: Supple, no meningeal sign - Cardiac Cardiac: RRR, Strong equal pulses - Respiratory Respiratory: No respiratory distress, Clear bilaterally - Derm Derm: Warm and dry - Neuro Neuro: Alert and oriented X 3, 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 No convincing evidence of a demyelinating process. No abnormal T2 signal or enhancement involving either optic nerve. ) PD MEDICAL DECISION MAKING - ED course Complexity details: reviewed old records, reviewed results, re-evaluated patient , considered differential, d/w patient, d/w family ED course: Patient is a 27-year-old female who is here for day 2 of her IV Solu-Medrol for possible optic neuritis. It is recommended that she have an MRI while in the emergency department by neurology last night, but MRI was not available someone was obtained today. Does not show any acute abnormalities. Feels better after Haldol and Benadryl in the emergency department. Also given her second dose of IV Solu-Medrol. Will have her return tomorrow for a third dose. Patient counseled regarding signs and symptoms for which I believe and urgent re- evaluation would be necessary. Patient with good understanding of and agreement to plan and is comfortable going home at this time This document was made in part using voice recognition software. While efforts are made to proofread this document, sound alike and grammatical errors may occur. - Sepsis Event Vital Signs: Vital Signs - 24 hr 09/12/17 09/12/17 09/12/17 14:37 16:54 21:00 Temperature 37.0 C Heart Rate 85 74 76 Respiratory 16 16 16 Rate Blood Pressure 129/76 125/75 124/76 O2 Saturation 98 99 99 Oxygen O2 Source Room air Departure - Departure Disposition: 01 Home, Self Care Clinical Impression: Optic neuritis Headache Qualifiers: Headache type: unspecified Headache chronicity pattern: acute headache Intractability: not intractable Qualified Code(s): R51 - Headache Condition: Good Instructions: ED Cephalgia Unspecified Follow-Up: ARINA GATES [Primary Care Provider] - Within 1 week Comments: Return tomorrow for the last steroid treatment. Discharge Date/Time: 09/12/17 19:30
[2017-09-12] MEDS ORDERED: GADOBUTROL 15 MMOL/15 ML VIAL ONE (15:15)
[2017-09-12] MEDS ORDERED: GADOBUTROL 15 MMOL/15 ML VIAL IVP ONE (16:19)
--- NOTE | 2017-09-12 17:01 | MRI Preliminary Report ---
Exam: MRI BRAIN W/WO Impression: No acute infarct, masses, or other discrete acute parenchymal process identified. No convincing evide nce of a demyelinating process. No abnormal T2 signal or enhancement involving either optic nerve. SITE ID: [id number]
--- NOTE | 2017-09-12 17:06 | MRI Report ---
EXAM: MRI BRAIN WITH AND WITHOUT CONTRAST, BRAIN AND ORBITS COMPARISON: CT head, 12/03/2016; brain MRI, 04/28/2017. CLINICAL HISTORY: Optic neuritis, HOOK. TECHNIQUE: Multiplanar multisequence imaging is performed through the head with and without gadolinium based contrast 6.5 mL Gadavist. High-resolution images are obtained through the orbits. FINDINGS: Diffusion-weighted imaging shows no acute infarcts. Gradient sequence shows no evident prior parenchymal hemorrhage. T2 FLAIR imaging shows minimal white matter T2 prolongation, no discrete foci. Pituitary fossa, clivus and foramen magnum are unremarkable. No calvarial signal abnormality. High-resolution imaging through the orbits shows no abnormal signal within either optic nerve on T2 imaging. No abnormal optic nerve enhancement on postcontrast coronal T1 fat-saturated images. Extraocular muscles are normal. Globes are normal. No intraconal masses. No extraconal masses. IMPRESSION: No acute infarct, masses, or other discrete acute parenchymal process identified. No convincing evidence of a demyelinating process. No abnormal T2 signal or enhancement involving either optic nerve. Referring Provider Line: [phone] SITE ID: [id number] REVISED: REPORT ORIG. SIGNED ON 09/12/17@1706; ORDERS LINKED ON 10/19/17 jll MTDD
[2017-09-12 21:01] VITALS: BP 124/76
== END 2017-09-12 19:30 | disposition home or self-care (01) ==
LOC: ED 14:28
DX: H46.9 Unspecified optic neuritis (principal); R51 Headache
CPT/HCPCS: 70543; 70553; 99283

== ENCOUNTER 2017-09-13 16:14 | Emergency (ER) | payer OTHER ==
[2017-09-13] MEDS ORDERED: methylPREDNISolone SUCCINATE 1,000 MG in SODIUM CHLORIDE 0.9% 250 ML IV STA (16:18)
--- NOTE | 2017-09-13 17:01 | ED Physician Documentation ---
History of Present Illness - Stated complaint Stated Complaint: STEROID SHOT - Chief complaint Chief Complaint: Neuro - History obtained from History obtained from: Patient - History of Present Illness Timing: How many days ago (3) Pain level max: 4 Pain level now: 4 Improved by: solu-medrol Worsened by: light, noise - Additonal information Additional information: Patient being treated for optic neuritis. Here for 3rd dose of steroids. HOOK is continuing to improve. Vision normal. no vomiting. 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 HEENT: Other Psych: None Musculoskeletal: None Derm: None - Past Surgical History Past Surgical History: Yes HEENT: Tonsil/Adenoidectomy - Present Medications Home Medications: Ambulatory Orders Medication Instructions Recorded Confirmed Topiramate [Topamax] 1 tab PO BID 09/13/17 09/13/17 - Allergies Allergies/Adverse Reactions: Allergies Allergy/AdvReac Type Severity Reaction Status Date / Time ampicillin Allergy Unknown Unknown Verified 09/13/17 16:48 lactose Allergy Unknown Verified 09/13/17 16:48 Penicillins Allergy Unknown Verified 09/13/17 16:48 - Social History Does the pt smoke?: No Smoking Status: Never smoker Does the pt drink ETOH?: No Does the pt have substance abuse?: No - Immunizations Immunizations are current?: Yes - POLST Patient has POLST: No PD ED PE NORMAL - Vitals Vital signs reviewed: Yes - General General: Alert and oriented X 3, No acute distress, Well developed/nourished - HEENT HEENT: PERRL, Moist mucous membranes - Neck Neck: Supple, no meningeal sign - Cardiac Cardiac: RRR - Respiratory Respiratory: No respiratory distress, Clear bilaterally - Abdomen Abdomen: Soft, Non tender, Non distended - Derm Derm: Warm and dry - Extremities Extremities: No edema, No calf tenderness / cord - Neuro Neuro: Alert and oriented X 3, package worker 2-12 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 She is feeling much improved and will follow-up as an outpatient. Patient counseled regarding signs and symptoms for which I believe and urgent re-evaluation would be necessary. Patient with good understanding of and agreement to plan and is comfortable going home at this time This document was made in part using voice recognition software. While efforts are made to proofread this document, sound alike and grammatical errors may occur. - Sepsis Event Vital Signs: Vital Signs - 24 hr 18 09/13/17 16:49 17:55 Temperature 36.5 C Heart Rate 79 71 Respiratory 18 16 Rate Blood Pressure 110/67 109/68 O2 Saturation 100 100 Oxygen O2 Source Room air Departure - Departure Disposition: 01 Home, Self Care Clinical Impression: Optic neuritis Headache Qualifiers: Headache type: unspecified Headache chronicity pattern: unspecified pattern Intractability: not intractable Qualified Code(s): R51 - Headache Condition: Good Instructions: ED Cephalgia Unspecified Follow-Up: ARINA GATES [Primary Care Provider] - Within 1 week Comments: Return if you worsen. Discharge Date/Time: 09/13/17 17:56
[2017-09-13 17:56] VITALS: BP 109/68
== END 2017-09-13 17:56 | disposition home or self-care (01) ==
LOC: ED 16:14
DX: H46.9 Unspecified optic neuritis (principal); R51 Headache
CPT/HCPCS: 96374; 99283

== ENCOUNTER 2017-10-01 00:38 | Emergency (ER) | payer OTHER ==
[2017-10-01] MEDS ORDERED: KETOROLAC 60 MG/2 ML VIAL IM STA (00:46)
--- NOTE | 2017-10-01 01:01 | ED Physician Documentation ---
PD HPI LOWER EXT INJURY - Stated complaint Stated Complaint: R ANKLE INJURY - Chief complaint Chief Complaint: Ext Problem - History obtained from History obtained from: Patient - History of Present Illness PD HPI LOW EXT INJURY LOCATION: Right, Ankle, Foot Type of injury: Fall, Twist Where injury occurred: Other (friends home) Timing - onset: How many hours ago (1) Timing - duration: Hours (1) Timing - details: Abrupt onset Pain level max: 8 Pain level now: 5 Improved by: Rest, Ice, Immobilization Worsened by: Moving, Palpating Associated symptoms: Swelling. 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 HEENT: Other Psych: None Musculoskeletal: None Derm: None - Past Surgical History Past Surgical History: Yes HEENT: Tonsil/Adenoidectomy - Present Medications Home Medications: Ambulatory Orders Medication Instructions Recorded Confirmed Topiramate [Topamax] 1 tab PO BID 09/13/17 09/13/17 - Allergies Allergies/Adverse Reactions: Allergies Allergy/AdvReac Type Severity Reaction Status Date / Time ampicillin Allergy Unknown Unknown Verified 09/13/17 16:48 lactose Allergy Unknown Verified 09/13/17 16:48 Penicillins Allergy Unknown Verified 09/13/17 16:48 - Social History Does the pt smoke?: No Smoking Status: Never smoker Does the pt drink ETOH?: No Does the pt have substance abuse?: No - Immunizations Immunizations are current?: Yes - POLST Patient has POLST: No PD ED PE NORMAL - Vitals Vital signs reviewed: Yes - General General: Alert and oriented X 3 - HEENT HEENT: Moist mucous membranes - Derm Derm: Warm and dry - Extremities Extremities: Other (R ankle - TTP over the R lateral malleolus and R 5th MT. NVI. ) - Neuro Neuro: Alert and oriented X 3 Results - Vitals Vitals: Oxygen O2 Source Room air - Rads (name of study) R ankle xray Radiology: Prelim report reviewed, EMP read contemporaneously, See rad report ( Normal) R foot xray Radiology: Prelim report reviewed, EMP read contemporaneously, See rad report ( Normal) PD MEDICAL DECISION MAKING - ED course Complexity details: reviewed results, re-evaluated patient, considered differential, d/w patient ED course: Patient is a 27-year-old female with a right ankle sprain. No acute findings on x-ray. Given crutches and placed in ankle brace. We will have her follow- up with her doctor for further care. Patient counseled regarding signs and symptoms for which I believe and urgent re-evaluation would be necessary. Patient with good understanding of and agreement to plan and is comfortable going home at this time This document was made in part using voice recognition software. While efforts are made to proofread this document, sound alike and grammatical errors may occur. - Sepsis Event Vital Signs: Oxygen O2 Source Room air Departure - Departure Disposition: 01 Home, Self Care Clinical Impression: Right ankle sprain Qualifiers: Encounter type: initial encounter Involved ligament of ankle: unspecified ligament Qualified Code(s): S93.401A - Sprain of unspecified ligament of right ankle, initial encounter Condition: Good Instructions: ED Sprain Ankle W X Ray Follow-Up: ARINA GATES [Primary Care Provider] - Within 1 week (if not better) Comments: Continue Motrin and Tylenol as needed for pain. Return if you worsen. Follow- up with your doctor in 1 week if you are not better. You may bear weight as tolerated. Forms: Activity restrictions Discharge Date/Time: 10/01/17 01:54
--- NOTE | 2017-10-01 01:40 | XRAY Report ---
Procedure Date: 10/01/2017 Accession Number: [id number] / [id number] Procedure: XR - Ankle 3 View RT CPT Code: FULL RESULT: EXAMS: RIGHT FOOT AND ANKLE RADIOGRAPHY EXAM DATE: 10/01/2017 01:28 AM. CLINICAL HISTORY: Right foot/ankle inversion injury. COMPARISON: None. TECHNIQUE: 3 views each foot and ankle. FINDINGS: Bones: Normal. No fractures or bone lesions in the foot or ankle. Joints: Normal. No effusions. No subluxations in the foot or ankle. The ankle mortise is normally aligned. Soft Tissues: Normal. No soft tissue swelling. IMPRESSION: Normal foot and ankle radiography. [facility]
--- NOTE | 2017-10-01 01:40 | XRAY Report ---
Procedure Date: 10/01/2017 Accession Number: [id number] / [id number] Procedure: XR - Foot 3 View RT CPT Code: FULL RESULT: EXAMS: RIGHT FOOT AND ANKLE RADIOGRAPHY EXAM DATE: 10/01/2017 01:28 AM. CLINICAL HISTORY: Right foot/ankle inversion injury. COMPARISON: None. TECHNIQUE: 3 views each foot and ankle. FINDINGS: Bones: Normal. No fractures or bone lesions in the foot or ankle. Joints: Normal. No effusions. No subluxations in the foot or ankle. The ankle mortise is normally aligned. Soft Tissues: Normal. No soft tissue swelling. IMPRESSION: Normal foot and ankle radiography. [facility]
[2017-10-01 01:55] VITALS: BP 118/77
== END 2017-10-01 01:54 | disposition home or self-care (01) ==
LOC: ED 00:38
DX: S93.401A Sprain of unspecified ligament of right ankle, initial encounter (principal); W10.9XXA Fall (on) (from) unspecified stairs and steps, initial encounter; X50.9XXA Other and unspecified overexertion or strenuous movements or postures, initial encounter; Y93.01 Activity, walking, marching and hiking; Y92.009 Unspecified place in unspecified non-institutional (private) residence as the place of occurrence of the external cause
CPT/HCPCS: 96372; 99283

== ENCOUNTER 2017-11-11 18:36 | Emergency (ER) | payer OTHER ==
[2017-11-11 19:14] LABS: BASOPHILS # (AUTO) 0.1 10^3/uL (0.0-0.1); BASOPHILS % (AUTO) 0.9 %; EOSINOPHILS % (AUTO) 0.6 %; HGB - HEMOGLOBIN 12.4 g/dL (12.0-16.0); LYMPHOCYTES # (AUTO) 1.6 10^3/uL (1.5-3.5); LYMPHOCYTES % (AUTO) 18.2 %; MEAN CORPUSCULAR HEMOGLOBIN 26.1 pg (27.0-31.0); MEAN CORPUSCULAR HGB CONC 32.6 g/dL (32.0-36.0); MEAN CORPUSCULAR VOLUME 80.1 fL (81.0-99.0); MEAN PLATELET VOLUME 9.3 fL (7.9-10.8); MONOCYTES # (AUTO) 0.6 10^3/uL (0.0-1.0); NEUTROPHILS # (AUTO) 6.3 10^3/uL (1.5-6.6); NEUTROPHILS % (AUTO) 73.3 %; PLT - PLATELET COUNT 209 10^3/uL (130-450); RED BLOOD COUNT 4.74 10^6/uL (4.20-5.40); RED CELL DISTRIBUTION WIDTH 18.7 % (12.0-15.0); WHITE BLOOD COUNT 8.6 x10^3/uL (4.8-10.8)
[2017-11-11] MEDS ORDERED: HYDROmorphone 2 MG/ML VIAL IVP STA ×2 (19:23→22:15)
[2017-11-11] MEDS ORDERED: ONDANSETRON 4 MG/2 ML VIAL IVP STA (19:23)
--- NOTE | 2017-11-11 19:25 | ED Physician Documentation ---
PD HPI ABD PAIN - Stated complaint Stated Complaint: ABD PX - Chief complaint Chief Complaint: Abd Pain - History obtained from History obtained from: Patient - History of Present Illness Timing - onset: Other (27-year-old woman with no history of abdominal surgeries presents with pelvic pain. She first had 3 weeks ago when her menses should have come, she thought was her menses coming. It never came. It went away and then came back the next week. Now it has been severe for a day especially today with severe lower abdominal pain, pressure. She has no bleeding or discharge. She has been nauseous because of the pain. She was sent from her doctor's office because of significant tenderness.) Review of Systems Ten Systems: 10 systems reviewed and negative Constitutional: denies: Fever, Chills GI: reports: Abdominal Pain, Nausea. 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 HEENT: Other Psych: None Musculoskeletal: None Derm: None - Past Surgical History Past Surgical History: Yes HEENT: Tonsil/Adenoidectomy - Present Medications Home Medications: Ambulatory Orders Medication Instructions Recorded Confirmed Topiramate [Topamax] 50 tab PO BID 09/13/17 09/13/17 Ibuprofen [Motrin] 800 mg PO Q8H PRN #30 tablet 11/11/17 Oxycodone HCl/Acetaminophen 1 - 2 tab PO Q4H PRN #15 tablet 11/11/17 [Percocet 5-325 mg Tablet] - Allergies Allergies/Adverse Reactions: Allergies Allergy/AdvReac Type Severity Reaction Status Date / Time ampicillin Allergy Unknown Unknown Verified 11/11/17 18:53 lactose Allergy Unknown Verified 11/11/17 18:53 Penicillins Allergy Unknown Verified 11/11/17 18:53 - Social History Does the pt smoke?: No Smoking Status: Never smoker Does the pt drink ETOH?: No Does the pt have substance abuse?: No - Family History Family history: reports: Non contributory - Immunizations Immunizations are current?: Yes - POLST Patient has POLST: No PD ED PE NORMAL - Vitals Vital signs reviewed: Yes - General General: Alert and oriented X 3, Other (Uncomfortable) - HEENT HEENT: PERRL, EOMI - Neck Neck: Supple, no meningeal sign, No bony TTP - Cardiac Cardiac: RRR, No murmur - Respiratory Respiratory: No respiratory distress, Clear bilaterally - Abdomen Abdomen: Normal bowel sounds, Soft, Other (Significant pelvic tenderness lateralizing to the left side.) - Back Back: No CVA TTP, No spinal TTP - Derm Derm: Normal color, Warm and dry - Extremities Extremities: No edema, No calf tenderness / cord - Neuro Neuro: Alert and oriented X 3, Normal speech - Psych Psych: Normal mood, Normal affect Results - Vitals Vitals: Vital Signs - 24 hr 11/11/17 11/11/17 18:50 21:14 Temperature 36.8 C Heart Rate 74 64 Respiratory 16 16 Rate Blood Pressure 98/54 L 109/76 O2 Saturation 100 100 Oxygen O2 Source Room air - Labs Labs: Laboratory Tests 11/11/17 11/11/17 11/11/17 19:05 19:05 19:08 WBC 8.6 RBC 4.74 Hgb 12.4 Hct 38.0 MCV 80.1 L MCH 26.1 L MCHC 32.6 RDW 18.7 H Plt Count 209 MPV 9.3 Neut # (Auto) 6.3 Lymph # (Auto) 1.6 Pacific # (Auto) 0.6 Eos # (Auto) 0.0 Baso # (Auto) 0.1 Absolute Nucleated RBC 0.00 Nucleated RBC % 0.0 Sodium Potassium Chloride Carbon Dioxide Anion Gap BUN Creatinine Estimated GFR (MDRD) Glucose Calcium Total Bilirubin AST ALT Alkaline Phosphatase Total Protein Albumin Globulin Albumin/Globulin Ratio Lipase Urine Color YELLOW Urine Clarity CLEAR Urine pH 6.0 Ur Specific Pavilion <=1.005 <=1.005 Urine Protein NEGATIVE Urine Glucose (UA) NEGATIVE Urine Ketones NEGATIVE Urine Occult Blood NEGATIVE Urine Nitrite NEGATIVE Urine Bilirubin NEGATIVE Urine Urobilinogen 0.2 (NORMAL) Ur Leukocyte Esterase NEGATIVE Ur Microscopic Review NOT INDICATED Urine Culture Comments NOT INDICATED Urine HCG, Qual NEGATIVE 11/11/17 19:08 WBC RBC Hgb Hct MCV MCH MCHC RDW Plt Count MPV Neut # (Auto) Lymph # (Auto) Pacific # (Auto) Eos # (Auto) Baso # (Auto) Absolute Nucleated RBC Nucleated RBC % Sodium 137 Potassium 3.6 Chloride 101 Carbon Dioxide 26 Anion Gap 10.0 BUN 6 Creatinine 0.6 Estimated GFR (MDRD) 120 Glucose 97 Calcium 9.7 Total Bilirubin 1.3 H AST 17 ALT 12 Alkaline Phosphatase 63 Total Protein 7.5 Albumin 4.6 Globulin 2.9 Albumin/Globulin Ratio 1.6 Lipase 30 Urine Color Urine Clarity Urine pH Ur Specific Pavilion Urine Protein Urine Glucose (UA) Urine Ketones Urine Occult Blood Urine Nitrite Urine Bilirubin Urine Urobilinogen Ur Leukocyte Esterase Ur Microscopic Review Urine Culture Comments Urine HCG, Qual - Rads (name of study) Pelvic sono Radiology: EMP read contemporaneously (Left ovarian cysts, small. No other abnormality, no evidence of torsion.) PD MEDICAL DECISION MAKING - ED course ED course: 27-year-old woman with no possibility of presents with pelvic pain, Predominantly on the left, More diffuse prior to the administration of pain medications but on reexamination serially after pain medication settled in the left pelvis. She has a small ovarian cyst there. - Sepsis Event Vital Signs: Vital Signs - 24 hr 11/11/17 11/11/17 18:50 21:14 Temperature 36.8 C Heart Rate 74 64 Respiratory 16 16 Rate Blood Pressure 98/54 L 109/76 O2 Saturation 100 100 Oxygen O2 Source Room air Departure - Departure Disposition: Home, Self Care Clinical Impression: Cyst of ovary Qualifiers: Laterality: left Qualified Code(s): N83.202 - Unspecified ovarian cyst, left side Condition: Good Record reviewed to determine appropriate education?: Yes Instructions: ED Pelvic Pain [facility] Prescriptions: Ibuprofen [Motrin] 800 mg PO Q8H PRN #30 tablet PRN Reason: PAIN &/OR FEVER Oxycodone HCl/Acetaminophen [Percocet 5-325 mg Tablet] 1 - 2 tab PO Q4H PRN #15 tablet PRN Reason: Pain Comments: Return tomorrow if not better or anytime if worsening or new symptoms develop. Forms: Activity restrictions
[2017-11-11 19:27] LABS: ALBUMIN 4.6 g/dL (3.2-5.5); ALBUMIN/GLOBULIN RATIO 1.6 (1.0-2.2); BILIRUBIN,TOTAL 1.3 mg/dL (0.2-1.0); CALCIUM 9.7 mg/dL (8.5-10.3); CREATININE 0.6 mg/dL (0.4-1.0); TOTAL PROTEIN 7.5 g/dL (6.7-8.2)
[2017-11-11 19:32] LABS: BILIRUBIN,URINE NEGATIVE (NEGATIVE); GLUCOSE, URINE (UA) NEGATIVE (NEGATIVE); KETONES,URINE (UA) NEGATIVE (NEGATIVE); LEUKOCYTE ESTERASE, URINE NEGATIVE (NEGATIVE); NITRITE,URINE NEGATIVE (NEGATIVE); OCCULT BLOOD,URINE NEGATIVE (NEGATIVE); PROTEIN,URINE NEGATIVE (NEGATIVE); UROBILINOGEN,URINE 0.2 (NORMAL) E.U./dL (NORMAL)
[2017-11-11 19:44] LABS: CLARITY,URINE CLEAR (CLEAR)
[2017-11-11 19:46] LABS: HCG UR QUAL NEGATIVE
[2017-11-11] MEDS ORDERED: KETOROLAC 60 MG/2 ML VIAL IVP STA (20:43)
--- NOTE | 2017-11-11 22:02 | Ultrasound Report ---
Procedure Date: 11/11/2017 Accession Number: [id number] / [id number] Procedure: US - Pelvic w/Transvag+Doppler Ltd CPT Code: FULL RESULT: EXAM: PELVIC ULTRASOUND WITH DOPPLER. EXAM DATE: 11/11/2017 08:15 PM. CLINICAL HISTORY: Pelvic pain. COMPARISON: MR pelvis without contrast 09/17/2015. Pelvic ultrasound 12/24/2014. TECHNIQUE: Realtime transabdominal pelvic scan performed to identify the uterus and adnexa and as an overview of other pelvic structures, followed by transvaginal scan to provide greater detail of the uterus and adnexa, with static image documentation. Spectral and color Doppler imaging also performed of the adnexa due to concern for torsion. FINDINGS: Uterus: 7.1 x 3.9 x 4.7 cm, volume 68 cc. Retroflexed position. Normal overall size and echotexture. Masses: None. Endometrium: 10 mm. Normal. Cervix: Unremarkable. Right Ovary: 3.6 x 2.2 x 2.9 cm, volume 12 cc. Normal echotexture and blood flow. Echogenic mass with posterior shadowing most suggestive of a dermoid again demonstrated measuring 1.8 x 1.8 x 1.5 cm, previously 2.3 x 2.2 x 2.4 cm. Left Ovary: 4.0 x 2.7 x 2.8 cm, volume 16 cc. Normal echotexture and blood flow. Simple cyst/follicle measures 2.0 x 1.8 x 2.3 cm. Free Fluid: None. Other: None. IMPRESSION: 1. No acute pelvic abnormality. Specifically no sonographic evidence of ovarian torsion. 2. Slightly decreased size of the benign right ovarian dermoid. 3. Normal uterus, endometrium and left adnexa. [facility] The above findings were discussed with Flynn Peralta by Dr. Siva Nolen at 21:43 hrs on 11/11/17.
[2017-11-11] MEDS ORDERED: oxyCODONE/ACET 5/325 Prepack 4 PO STA (22:15)
[2017-11-11 22:39] VITALS: BP 123/85
== END 2017-11-11 22:45 | disposition home or self-care (01) ==
LOC: ED 18:36
DX: N83.202 Unspecified ovarian cyst, left side (principal)
CPT/HCPCS: 36415; 76830; 76856; 80053; 81003; 81025; 83690; 85025; 93976; 96374; 96375; 96376; 99283; J1170; 81001; 87086